=== PATIENT | female | born 1955 | race Caucasian/White ===

== ENCOUNTER 2019-11-23 23:02 | Emergency (ER) | payer BC, OTHER ==
--- NOTE | 2019-11-24 | EDM.PDOC ---
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 [No Known Home Meds] 11/23/19 [History] ED ROS GENERAL - Review of Systems Review Of Systems: See Below Respiratory: Reports: Shortness of Breath Cardiovascular: Reports: No Symptoms GI/Abdominal: Reports: No Symptoms ED EXAM, GENERAL - Physical Exam Exam: See Below Exam Limited By: No Limitations General Appearance: Alert, WD/WN, No Apparent Distress Neck: Supple Respiratory/Chest: Lungs Clear Cardiovascular: Regular Rate, Rhythm Course - Vital Signs Last Recorded V/S: Last Vital Signs Temp 97.8 F 11/23/19 23:03 Pulse 66 11/23/19 23:15 Resp 15 11/23/19 23:15 BP 160/56 H 11/23/19 23:15 Pulse Ox 100 11/23/19 23:15 - Orders/Labs/Meds Orders: Active Orders 24 hr Category Date Time Status CXR [Chest 2V] [CR] Stat Exams 11/23/19 23:41 Taken - Re-Assessments/Exams Free Text/Narrative Re-Assessment/Exam: 11/23/19 23:59 CXR without infiltrate Departure - Departure Time of Disposition: 23:55 Disposition: Home, Self-Care 01 Clinical Impression: Chemical exposure - Discharge Information *PRESCRIPTION DRUG MONITORING PROGRAM REVIEWED*: Not Applicable *COPY OF PRESCRIPTION DRUG MONITORING REPORT IN PATIENT INGA: Not Applicable Referrals: Justice Piedra MD [Primary Care Provider] - Additional Instructions: Follow up in clinic Sepsis Event Note - Evaluation Sepsis Screening Result: No Definite Risk - Focused Exam Vital Signs: Vital Signs Temp Pulse Resp BP Pulse Ox 11/23/19 23:15 66 15 160/56 H 100 11/23/19 23:03 97.8 F 65 18 173/64 H 98 Date Exam was Performed: 11/23/19 Time Exam was Performed: 23:57 - My Orders Last 24 Hours: My Active Orders 11/23/19 23:41 CXR [Chest 2V] [CR] Stat - Assessment/Plan Last 24 Hours: My Active Orders 11/23/19 23:41 CXR [Chest 2V] [CR] Stat
== END 2019-11-24 00:30 | disposition home or self-care (01) ==
LOC: LL.ED 23:02
DX: Z77.098 Contact with and (suspected) exposure to other hazardous, chiefly nonmedicinal, chemicals (principal)
CPT/HCPCS: 71046; 99283-25